=== PATIENT | female | born 1965 | race African-American/Black ===

== ENCOUNTER 2017-06-18 10:00 | Day surgery (SDC) | payer OTHER ==
[~2017-06-18] VITALS: Ht 162.6 cm; Wt 68.0 kg
[2017-06-18] VITALS (7 sets, daily range): BP systolic 135–172; BP diastolic 74–97
--- NOTE | 2017-06-18 07:07 | Anethesia Preoperative Eval ---
Anesthesia Pre-op PMH/ROS General Date of Evaluation: June 18, 2017 Time of Evaluation: 07:07 Anesthesiologist: ana ASA Score: ASA 3 Mallampati Score Class I : Soft palate, uvula, fauces, pillars visible Class II: Soft palate, uvula, fauces visible Class III: Soft palate, base of uvula visible Class IV: Only hard plate visible Mallampati Classification: Class II Surgeon: mauricio Diagnosis: anemia Surgical Procedure: colonoscopy Anesthesia History: none Allergies: Coded Allergies: No Known Allergies (Unverified , 06/18/17) Past Medical History Cardiovascular: Reports: HTN Gastrointestinal/Genitourinary: Reports: GERD, other - menorrhagia 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 Exam Physician Exam Last Vital Signs Date Time Temp Pulse Resp B/P (MAP) Pulse Ox O2 Delivery O2 Flow Rate FiO2 06/18/17 10:40 98.0 68 18 135/84 98 Room Air 98.0 Constitutional: NAD Neurologic: CN 2-12 intact Cardiovascular: RRR Respiratory: CTA Gastrointestinal: S/NT/ND Airway Exam Mallampati Score: Class II MO: full Neck: supple TMD: 2fb ROM: full Teeth: intact Anesthesia Pre-op A/P Risk Assessment & Plan Assessment: asa3 Plan: mac Status Change Before Surgery: No Pre-Antibiotics Drug: RADHA Garcia June 18, 2017 07:07
[~2017-06-18 10:00] MED LIST: Atropine Inj 1mg/10ml Syr IV PRN; DiphenhydrAMINE 50mg/ml Inj IVP PRN; LR 1000ml 1,000 ML IVLG SCH; Midazolam 2mg/2ml Inj IVP PRN; fentaNYL 100 mcg/2 mL IV PRN
[2017-06-18] MEDS ORDERED: GERD MED (10:54)
[2017-06-18] MEDS ORDERED: LISINOPRIL5 MG ORAL (10:54)
--- NOTE | 2017-06-18 11:55 | Short Stay Surgery H&P ---
History of Present Illness History of Present Illness Chief Complaint Anemia/possible GI bleeding, R/O colonic bleeding source? HPI Vidhya Lopez is a 52 year old female who was admitted on for anemia with possible GI source/bleeding. Patient History Allergies: Coded Allergies: No Known Allergies (Unverified , 06/18/17) PAST MEDICAL HISTORY: (1) Hypertension (2) Anemia (3) Metrorrhagia Medication History Scheduled Lisinopril (Lisinopril*), 5 MG ORAL DAILY, (Reported) Miscellaneous Medications [Gerd Med], (Reported) Review of Systems Cardiovascular: Reports: no symptoms Respiratory: Reports: no symptoms Skeletal: Reports: trauma Gastrointestinal: Reports: no symptoms Genitourinary: Reports: other Neurologic: Reports: no symptoms Endocrine: Reports: no symptoms Hematologic: Reports: anemia Physical Exam Vital Signs Last Vital Signs Date Time Temp Pulse Resp B/P (MAP) Pulse Ox O2 Delivery O2 Flow Rate FiO2 06/18/17 10:40 98.0 68 18 135/84 98 Room Air 98.0 Labs Laboratory Tests Test 06/18/17 10:40 Urine HCG, Qualitative Negative (NEGATIVE) Skin: normal HENT: normal Heart: normal Lungs: normal Abdomen: normal Extremities: normal Genitourinary: normal Plan Plan of Care Total colonoscopy Preop Interventions None. Summary of Findings see the reports. Attestation Are the patient's medical conditions optimized for surgery? Attestation Response: yes AMARI CORDOVA June 18, 2017 11:55
--- NOTE | 2017-06-18 11:56 | Pre-Procedure Note/Attestation ---
Pre-Procedure Note/Attestation Complete Prior to Procedure Planned Procedure: left Procedure Narrative: Examination of the total colon via endoscopy Indications for Procedure Pre-Operative Diagnosis: R/O colonic tumors/colitis/ulcers, bleeding site. Attestation I attest that I discussed the nature of the procedure; its benefits; risks and complications; and alternatives (and the risks and benefits of such alternatives ), prior to the procedure, with the patient (or the patient's legal outside dealer sales representative). I attest that, if there was a reasonable possibility of needing a blood transfusion, the patient (or the patient's legal outside dealer sales representative) was given the [place] [employer] standardized written summary, pursuant to the Rajesh Goodwell Blood Safety Act ([place] Health and Safety Code # 1645, as amended). I attest that I re-evaluated the patient just prior to the surgery and that there has been no change in the patient's H&P, except as documented below: TASHASAID June 18, 2017 11:56
[2017-06-18] MEDS ORDERED: LR 1000ml ONE (12:00)
[2017-06-18] MEDS ORDERED: Lidocaine 1% MPF 10mg/ml 5ml ONE (12:00)
[2017-06-18] MEDS ORDERED: Propofol 200mg/20ml IV ONE (12:00)
--- NOTE | 2017-06-18 12:22 | Endoscopy Procedure Note ---
Endoscopy Procedure Note General Indication for Procedure: Anemia, R/O GI bleeding source? Procedures Performed: colonoscopy - Mild diverticulosis of the left colon found , otherwise no colonic source found as the casue of the patient's anemia. Specimen: yes Pt Tolerated Procedure Well: No Estimated Blood Loss: none Anesthesia Anesthesiologist: Dr. Staton Anesthesia: moderate sedation Medications Medication Given: see anesthesia record Inserted Devices Implant(s) used?: No Quality Quality of Bowel Preparation: Good Did scope reach the cecum?: Yes Was there any complications?: No GI Core Measures 50 yrs or older w/o bx or poly: Yes 10yrs. F/U not recommended: Yes <3yrs. since last colonoscopy: No Last colonoscopy >= to 3yrs: Yes AMARI CORDOVA June 18, 2017 12:21
--- NOTE | 2017-06-18 12:23 | Discharge Instructions ---
Discharge Instructions Discharge Instructions Follow up with: Call for appointment for Dr. Lobato visit for next week. For Congestive Heart Failure Reminder Report to your physician any weight gain of 5 pounds or more in one week. TASHA,SAID June 18, 2017 12:22
--- NOTE | 2017-06-18 12:37 | Immediate Post-Op Evaluation ---
Immediate Post-Op Evalulation Immediate Post-Op Evalulation Procedure: colonoscopy Date of Evaluation: June 18, 2017 Time of Evaluation: 12:36 IV Fluids: 250ml lr Blood Products: none Estimated Blood Loss: negligible Blood Pressure Systolic: 172 Blood Pressure Diastolic: 81 Pulse Rate: 68 Respiratory Rate: 18 O2 Sat by Pulse Oximetry: 100 Temperature (Fahrenheit): 98.5 Pain Score (1-10): 0 Nausea: No Vomiting: No Complications none Patient Status: awake, reacts, patent Hydration Status: adequate Drug: RADHA Garcia June 18, 2017 12:37
--- NOTE | 2017-06-18 12:38 | 48 Hour Post Anesthesia Eval ---
Post Anesthesia Evaluation Procedure: colonoscopy Date of Evaluation: June 18, 2017 Time of Evaluation: 12:38 Blood Pressure Systolic: 156 0: 74 Pulse Rate: 64 Respiratory Rate: 18 Temperature (Fahrenheit): 98.5 O2 Sat by Pulse Oximetry: 100 Airway: patent Nausea: No Vomiting: No Pain Intensity: 0 Hydration Status: adequate Cardiopulmonary Status: stable Mental Status/LOC: patient returned to baseline Post-Anesthesia Complications: none Follow-up care needed: N/A RADHA PADGETT June 18, 2017 12:38
--- NOTE | 2017-06-18 19:15 | Pre-op HX & Phy Repo 2 SIG ---
DATE OF ADMISSION: 06/18/2017 HISTORY OF PRESENT ILLNESS: The patient is a 52-year-old female, who is being seen prior to undergoing the procedure of colonoscopic examination, which has been authorized by an insurance company for evaluation of her underlying chronic anemia, which has been thought to be possibly secondary to GI bleeding. The applicant has had multiple blood works in the recent past, which reveals evidence of low hemoglobin of 9.1 and that raised the question of possibility of GI source being responsible for bleeding though the applicant does not have any court bleeding noted by herself. Dr. Villaseñor who examined the patient had suggested the applicant should undergo a complete upper and lower GI endoscopic examination for finding possible source of GI bleeding. However, the insurance carrier did not authorize the upper GI endoscopy and only we were authorized to perform the procedure of colonoscopy, which is being done today. The applicant basically does have very minimal GI symptoms including abdominal cramps and pains at times, which is mild to moderate. This pain happens when she eats some meat product. She does have occasional symptoms of gastroesophageal acid reflux, for which she has been prescribed medication in the past such as Tagamet; however, she is not taking this medication anymore. The applicant denies having had any major health problem. There is no history of weight loss, nausea, vomiting, hematemesis, court melena, or GI bleeding noted in the stool. It is important to mention that the applicant has had history of taking nonsteroidal anti-inflammatory agents such as NSAID in the past subsequent to her work injury, which she reports did not produce any GI bleeding at that time and currently, she is not taking those medications. However, the patient has been receiving some medications such as [place] and Norvasc, and some pain medications occasionally. As I mentioned, her last hemoglobin was 9.1 with a hematocrit of 30.5 with microcytic indices suggesting the possibility of underlying iron deficiency. It is important to mention that the applicant has had history of metrorrhagia, which goes back to August 2016 and obviously continued up to September constantly and was heavy, as she reports she did not have any anemia before that and that raises the possibility of the cause of her anemia being secondary to significant blood loss due to metrorrhagia. PAST MEDICAL HISTORY: Hypertension and menorrhagia as I mentioned. She has also had depression and PTSD. PAST SURGICAL HISTORY: None. ALLERGIES: None. MEDICATIONS: Present medications, she takes blood pressure medications. PHYSICAL EXAMINATION: GENERAL: Reveals an alert and oriented female, does not seem to be in any acute distress. She looks well developed and nourished. VITAL SIGNS: They are all stable. HEENT: Normocephalic. Pupils equal in size and reactive to light and accommodation. No visible jaundice. Buccal cavity, tongue midline, well hydrated. No ulcers. NECK: Supple. No JVD, thyromegaly, or adenopathy. CHEST: Clear to auscultation and percussion. No rales or rhonchi heard. ABDOMEN: Soft, mildly tender, but nonspecifically. No palpable mass. No hepatosplenomegaly noted. EXTREMITIES: Unremarkable. PRELIMINARY IMPRESSION: 1. Anemia of iron deficiency in nature. Rule out gastrointestinal bleeding source such as peptic ulcer disease, gastritis. Rule out lower gastrointestinal bleeding sites such as polyps, tumors, colitis, hemangiomas, etc. 2. History of bodily injury, work related. 3. History of gastroesophageal reflux, stable. 4. History of constipation, mostly secondary to effect of narcotics and analgesics. RECOMMENDATION: The applicant seems to be stable at this time to undergo the procedure of colonoscopic examination, which has been authorized by insurance carrier. She understands the risks and benefits and will sign the consent. Said Sterling Lobato DR: LISA JOB#: [id number] CC:
--- NOTE | 2017-06-18 23:00 | Procedure Note ---
DATE OF PROCEDURE: 06/18/2017 PROCEDURE: Total colonoscopy. SURGEON: Karen Lobato M.D. PREOPERATIVE DIAGNOSIS: History of iron-deficiency anemia, rule out lower GI bleeding. POSTOPERATIVE DIAGNOSIS: Mild diverticulosis of the left colon, otherwise, complete normal total colonoscopy up to the base of the cecum as examined with no evidence of lower GI tract being the source of the patient's chronic anemia. MEDICATION USED: Per Dr. Staton, anesthesiologist. INSTRUMENT: GIF Olympus videocolonoscope. DESCRIPTION OF PROCEDURE: The patient after arriving in the endoscopy unit, was told about risks and benefits of the procedure, which she accepted and signed informed consent. The patient has been found to have iron-deficiency anemia and the primary physician had noted that there might be the possibility of GI tract being responsible for invisible GI bleeding source. The patient has had a history of significant metrorrhagia last year, before that time she never had anemia. At this time, she was told about risks and benefits of the procedure, which she accepted and signed informed consent. She was subsequently put on the left lateral decubitus position. After adequate IV sedation, the scope was gently passed through the anal area and a retroflexion maneuver, which was applied here did not reveal any major hemorrhoids or bleeding site. The rectum itself was completely normal and no pathology was found either. Subsequently, the scope was passed through somewhat redundant left colon, which revealed occasional diverticular lesions consistent with mild diverticulosis of the left colon. However, there was no polyps, tumors, ulcers, hemangiomas, colitis, etc. Noted. The scope was gradually advanced towards the splenic flexure. From there, it was guided into transverse colon, hepatic flexure, and finally reached to the base of the cecum. All these areas to be completely normal without any pathological site responsible for patient's anemia and possible GI bleeding from these sites. The colon cleanup was fair and at this point within 6 minutes, as the scope was gradually withdrawn, there were no other abnormalities found. The patient tolerated the procedure well and left the endoscopy room in a good condition. Karen Lobato M.D. DR: LISA JOB#: [id number] CC:
== END 2017-06-18 13:00 | disposition home or self-care (01) ==
LOC: GAS 10:00
DX: K57.30 Diverticulosis of large intestine without perforation or abscess without bleeding (principal); D50.9 Iron deficiency anemia, unspecified; K21.9 Gastro-esophageal reflux disease without esophagitis; I10 Essential (primary) hypertension; F32.9 Major depressive disorder, single episode, unspecified
CPT/HCPCS: 45378; 81025; J2704; J7120; 94003; 94150